=== PATIENT | female | born 1980 | race Caucasian/White ===

== ENCOUNTER 2023-10-28 10:00 | Emergency (ER) | payer OTHER, SELFPAY ==
--- NOTE | ~2023-10-28 | XR_ITS ---
EXAMINATION: XR knee RT 3V DATE: 10/28/2023 11:41 INDICATION: Right knee injury. TECHNIQUE: 3 views of right knee were obtained. COMPARISON: None. FINDINGS: Bone alignment is normal. No fracture. There is mild tricompartmental osteoarthritis. No kn ee joint effusion. IMPRESSION: 1. Mild right knee osteoarthritis. Reviewed, dictated and finalized at location A.
--- NOTE | ~2023-10-28 | XR_ITS ---
EXAMINATION: XR knee LT 3V DATE: 10/28/2023 11:41 INDICATION: Left knee injury. Fall. TECHNIQUE: 3 views of left knee were obtained. COMPARISON: None. FINDINGS: Bone alignment is normal. No fracture. There is moderate osteoarthritis of medial compartme nt and mild osteoarthritis of lateral and patellofemoral compartments. There is a small knee joint ef fusion. IMPRESSION: 1. Moderate left knee osteoarthritis. 2. Small left knee joint effusion. Reviewed, dictated and finalized at location A.
[2023-10-28 10:18] VITALS: BP 173/97; PULSE 63; RESP 17; TEMP 36.5; O2SAT 99
--- NOTE | 2023-10-28 11:17 | ED.FALL ---
HPI - Fall General Chief Complaint: Fall Stated Complaint: fall, knee pain Time Seen by Provider: 10/28/23 10:04 History of Present Illness HPI Narrative: 43-year-old female presents to the emergency room for evaluation of bilateral knee pain. Patient states that she was at work today when her left knee gave out on her. This caused her to fall landing directly on both knees. States the left knee hurts worse than right. Patient states that she was able to stand up and sit in a chair following the Incident. Denies any other injuries. Related Data Allergies Allergy/AdvReac Type Severity Reaction Status Date / Time No Known Allergies Allergy Verified 10/28/23 11:01 Review of Systems Review of Systems: ROS unremarkable except for noted in HPI Exam Narrative: GENERAL: Well-appearing, well-nourished, no physical limitations, and in no acute distress. HEAD: Normocephalic, atraumatic. EYES: Conjunctivae normal, PERRLA and EOMI. CHEST: Clear to auscultation. No respiratory distress. No wheezes rales or rhonchi. HEART: Regular rate and rhythm. No murmur heard. Normal peripheral pulses. EXTREMITIES: SKIN: Warm, dry, no rash. No noted wounds NEURO: No focal deficits. Alert and oriented x3. MAEW. CN's II-XI intact bilaterally, normal gait PSYCH: Cooperative. Normal mood and affect. Course Vital Signs Vital signs: Vital Signs Temperature 36.5 C 10/28/23 10:18 Pulse Rate 63 10/28/23 10:18 Respiratory Rate 17 10/28/23 10:18 Blood Pressure 173/97 H 10/28/23 10:18 Pulse Oximetry 99 10/28/23 10:18 Oxygen Delivery Room Air 10/28/23 10:18 Temperature 36.5 C 10/28/23 10:18 Pulse Rate 63 10/28/23 10:18 Respiratory Rate 17 10/28/23 10:18 Blood Pressure 173/97 H 10/28/23 10:18 Pulse Oximetry 99 10/28/23 10:18 Oxygen Delivery Room Air 10/28/23 10:18 MDM - Fall Imaging Data Radiologist's impression: Impressions Knee X-Ray 10/28/23 11:43 IMPRESSION: 1. Moderate left knee osteoarthritis. 2. Small left knee joint effusion. Knee X-Ray 06/19/24 11:44 IMPRESSION: 1. Mild right knee osteoarthritis. Discharge Plan Discharge Clinical Impression: Contusion of knee, right Contusion of knee, left Qualifiers: Encounter type: initial encounter Qualified Code(s): S80.02XA - Contusion of left knee, initial encounter Patient Disposition: Home, Self-Care Condition: Stable Instructions: Antibiotic Form, Contusion in Adults (ED) Prescriptions: New naproxen 500 mg tablet 500 mg PO BID Qty: 20 0RF Follow-up/Referrals: Wilman Carver MD [Physician] - UNKNOWN,DOCTOR [Primary Care Provider] - Time of Disposition: 11:50
[2023-10-28 12:17] VITALS: BP 181/104; PULSE 65; RESP 20; O2SAT 98
== END 2023-10-28 12:18 | disposition home or self-care (01) ==
PROVIDERS: Emergency Provider Nurse Practitioner Family
DX: S80.02XA Contusion of left knee, initial encounter (principal); S80.01XA Contusion of right knee, initial encounter; M17.0 Bilateral primary osteoarthritis of knee; W18.39XA Other fall on same level, initial encounter
CPT/HCPCS: 73562; 99284

== ENCOUNTER 2024-09-25 08:58 | Emergency (ER) | payer OTHER, SELFPAY ==
[2024-09-25 09:15] VITALS: BP 162/89; PULSE 76; RESP 16; TEMP 36.5; O2SAT 98
--- NOTE | 2024-09-25 09:17 | ED.DENTAL ---
HPI - Dental/Oral General Chief complaint: Dental/Oral Stated complaint: DENTAL PAIN/SWELLING Time Seen by Provider: 09/25/24 09:16 Source: patient Mode of arrival: ambulatory History of Present Illness HPI Narrative: 43 y/o female presented for c/o dental pain to left upper teeth, worsening the past few weeks. Last night she developed some facial swelling. She has been taking ibuprofen. Plans to call the dentist tomorrow. Denies n/v/d/f/c. MD Complaint: tooth pain Related Data Allergies Allergy/AdvReac Type Severity Reaction Status Date / Time No Known Allergies Allergy Verified 09/25/24 09:16 Review of Systems Review of Systems: CONSTITUTIONAL: Denies body aches, fever, chills ENT: Denies rhinorrhea, congestion, sore throat, or otalgia. Reports dental pain CARDIOVASCULAR: Denies chest pain, palpitations RESPIRATORY: Denies cough or dyspnea. SKIN: Denies rash, itching, or wounds. MUSCULOSKELETAL: Denies myalgia. NEUROLOGIC: Denies headache, numbness, tingling, or weakness. PMFSH Comments At time of signature, I have reviewed and agree with nursing past medical, surgical, social and family history unless otherwise noted. Please see nursing chart for further information. There is no relevant family history pertinent to the presenting complaint Exam Narrative: GENERAL: Appears in pain; no acute distress. HEAD: Normocephalic, atraumatic. EYES: EOMI. No redness or drainage. Conjunctivae normal. ENT: Dental pain location of #13,14, gum erythema and swelling noted with active purulent drainage. Tender. No significant facial swelling. Mucous membranes pink and moist. Throat normal. no dysphagia, odynophagia, dysphonia, or dyspnea. No uvular deviation or soft palate edema. NECK: Normal AROM. No lymphadenopathy. no induration below mandible, no neck pain. CHEST: No respiratory distress. Clear to auscultation. HEART: Regular rate and rhythm. No murmur appreciated. SKIN: Warm, dry, Normal skin turgor. NEURO: No focal deficits. Alert and oriented x3. Gait steady. Course Course Emergency Course: Patient is aware of diagnosis, understands and agrees to treatment plan. Anticipatory guidance given. Patient agrees to follow-up as directed and is aware of reasons to seek care at the emergency department. Portions of this record may have been created with voice recognition software [employer] of Care: Express Care Visit Vital Signs Vital signs: Vital Signs Temperature 97.7 F 09/25/24 09:15 Pulse Rate 76 09/25/24 09:15 Respiratory Rate 16 09/25/24 09:15 Blood Pressure 162/89 H 09/25/24 09:15 Pulse Oximetry 98 09/25/24 09:15 Temperature 97.7 F 09/25/24 09:15 Pulse Rate 76 09/25/24 09:15 Respiratory Rate 16 09/25/24 09:15 Blood Pressure 162/89 H 09/25/24 09:15 Pulse Oximetry 98 09/25/24 09:15 MDM - Dental/Oral MDM Narrative Medical decision making narrative: Patients pain and complaint coupled with physical findings are consistent with dental abscess to left upper gumline. There are no focal signs of space occupying lesions that are compromising to the airway; Patient is non-toxic appearing. The floor of the mouth is soft with no signs of David's Angina; Patient is without trismus or drooling and able to swallow secretions. Patient is felt appropriate for discharge home with dental follow up. Discharge Plan Discharge Clinical Impression: Dental abscess Patient Disposition: Home Condition: Stable Instructions: Antibiotic Form, Dental Abscess (ED) Additional Instructions: Take antibiotic as directed May apply heat or ice to the face - Recommend warm compresses to facilitate the drainage Lidocaine gel to the site for pain Gentle brushing and flossing. Rinse mouth with warm salt water at least 2 times a day. Alternate Tylenol and ibuprofen as needed for pain Follow-up with the dentist as soon as possible; call tomorrow to schedule an appointment Go to the ER for any worsening symptoms or concerns Patient Language: Com[place] Prescriptions: New ibuprofen 800 mg tablet 800 mg PO TID PRN (Reason: pain) Qty: 15 0RF lidocaine HCl [Lidocaine Viscous] 2 % solution 1 applic mucous membrane TID PRN (Reason: pain) Qty: 100 0RF Rx Instructions: apply with cotton swab to site of pain amoxicillin-pot clavulanate 875-125 mg tablet 1 tablet PO Q12H 7 Days Qty: 14 0RF Follow-up/Referrals: PHYSICIAN,[employer]IC [Primary Care Provider] - Time of Disposition: 09:23
== END 2024-09-25 09:31 | disposition home or self-care (01) ==
PROVIDERS: Emergency Provider Nurse Practitioner Family
DX: K04.7 Periapical abscess without sinus (principal)
CPT/HCPCS: 99213; G0463